=== PATIENT | female | born 1970 | race Hispanic/Latino ===

== ENCOUNTER 2023-10-17 05:16 | Day surgery (SDC) | payer OTHER, SELFPAY ==
[2023-10-09 12:39] VITALS: BMI 26.5
--- NOTE | 2023-10-09 12:42 | PC.NURSE ---
Report to the Outpatient Waiting Room, entrance under the green pavilion located off [facility], at time 1200 on date 10/17/23. Planned Procedure Time: 1400. Time changes happen often and if your time is changed the preop area will call you the afternoon before. - You and your visitor will be asked to self-screen and do not enter if you have any COVID symptoms. - A mask is optional within the hospital at this time. Patients may have clear liquids (water, carbonated beverages, clear teas, apple juice) until 3 hours prior to surgery with a maximum of 20 ounces. - No food from midnight until time of surgery Take the following medications with a SIP of water the morning of surgery: CITALOPRAM, LAMOTRIGINE DO NOT STOP ANY OF YOUR OTHER PRESCRIPTION MEDICATIONS PRIOR TO SURGERY ?EXCEPT THE FOLLOWING Medications to discontinue per physician: N/A Date to take last dose: N/A Please no make-up, nail sami, hairspray, perfume, deodorant, or body powder the day of surgery. No jewelry (including any body piercings) or valuables the day of surgery, leave them at home. Please take a shower or bath the night before, or the morning of, surgery with an antibacterial soap. Wear comfortable, loose fitting clothing. - Jewelry must be removed prior to entering the operating room. Rings and piercings that are not removed may be cut off. - The hospital will not accept responsibility for valuables. - Please leave all valuables, including medications, at home the day of surgery. If you are going home after surgery, a licensed auto haulaway driver must drive you home. - NO public transportation without another adult if you receive anesthesia. - We recommend that an adult stay with you for 24 hours following discharge. - We also recommend that you do not drive, make important decision, drink alcoholic beverages, or take any drugs that were not prescribed by your health care provider for at least 24 hours after your discharge time. Follow any additional instructions given to you from your surgeon. If you or anyone in your household have experienced Covid symptoms in the past week, please notify your surgeon or the nurse liaison at the phone number below for possible testing. Telephone instructions given to PT - LARISSA GLASGOW and asked if any additional questions and then verbalized understanding. Patient advised to call surgeon office or pre surgery nurse liaison [phone] if any additional questions.
[2023-10-17] VITALS (8 sets, daily range): BP systolic 102–134; BP diastolic 56–76; PULSE 76–109; RESP 13–22; TEMP 36.2–36.9; O2SAT 94–100
[2023-10-17] MEDS: LACTATED RINGERS 1,000 ML 30 ML IV CONT ×2 (11:00→13:01)
--- NOTE | 2023-10-17 11:26 | WPDANESEPPF ---
Anes - Initial Pre Proc Eval Procedure: Operation Date: 10/17/23 12:00 Proposed Procedures p Bilateral Breast Implant Removal with Capsulectomy - Abhilash Bearden MD Date/Time: 10/17/23 11:26 Surgeon: Abhilash Bearden MD Pre Op Diagnosis: hx of breast augmentation Patient Data Age: 53 Gender: F Height: 1.57 m Weight: 65.8 kg Allergies Allergy/AdvReac Type Severity Reaction Status Date / Time No Known Allergies Allergy Verified 10/09/23 12:37 Home Medications Medication Instructions Recorded Confirmed Type citalopram 40 mg tablet 40 mg PO DAILY 10/09/23 10/17/23 History lamotrigine 100 mg tablet 100 mg PO DAILY 10/09/23 10/17/23 History lamotrigine 150 mg tablet 150 mg PO HS 10/09/23 10/17/23 History lithium carbonate 600 mg capsule 600 mg PO HS 10/09/23 10/17/23 History Patient hx anesthesia problems: none Family hx anesthesia problems: none Results Review: All pre-operative results and documents have been reviewed as part of the pre-operative evaluation. [facility] Social History Social History Smoking status: Never smoker Alcohol intake: former Substance use: never Substance use type: does not use Living arrangements: with family Spiritual care concerns: No Anes - Eval Final PreProcedure Day of Procedure 10/17/23 11:26 Patient weight: normal Heart: regular rate and rhythm Lungs: clear to auscultation Airway: Mallampati scale class II Neurological: alert and oriented Last oral intake: >/= 8 hours ASA classification: II Emergent: no Anesthetic plan: proceed Anesthesia type and monitoring: general LMA and standard monitoring Results Review: All pre-operative results and documents have been reviewed as part of the pre-operative evaluation. Informed Consent: The patient's anesthetic plan and its attendant risks and benefits were discussed with the patient/family/POA. Questions were solicited and answers provided to the satisfaction of the patient/family/POA.
--- NOTE | 2023-10-17 11:27 | WPDHPUPDATE1 ---
History and Physical Update Update Date/Time: 10/17/23 11:27 History and Physical has been reviewed, including an updated exam of the patient. There are NO changes in the patient's condition. Risks, benefits, and alternatives have been discussed and questions answered. Patient agrees to proceed with procedure.
--- NOTE | 2023-10-17 11:28 | W.PM.PROC2 ---
Procedure Note - Detailed Date of Procedure 10/17/23 Pre-op Diagnosis hx of breast augmentation Post-op Diagnosis Same Procedure Performed Bilateral implant removal with capsulectomy Surgeon Abhilash Bearden MD Anesthesia General Findings Bilateral breast implants textured, intact. Subglandular. Majority of capsule removed. Description of Procedure She is here for the above procedure. Preoperatively risks, benefits, alternatives were discussed in extensive detail. Want her to be very realistic about risks involved as well as expectations. We discussed options or drains with the procedure including all her options. Made sure answered everyone of her questions to her satisfaction again today. She voiced clear understanding. Consent was obtained. She was taken to the operating room placed supine on the operating room table. Anesthesia provided by anesthesiology. She was prepped and draped in the standard sterile fashion. Surgical time-out was. 1% lidocaine and 0.25% Marcaine with epinephrine was used to provide a field block. Fifteen blade used to excise along previous scar. Dissection was continued down to the capsules identified it is an elevated above the capsule for majority of the capsule. At this point the implant and the capsule were removed. Capsule sent to pathology. I copiously irrigated with 3 L of saline solution on TUR tubing. Verified strict hemostasis. I closed with 2-0 Vicryl followed by 3-0 Stratafix in running subcuticular 4-0 Monocryl and tissue glue. Dressings and a surgical bra were placed. She tolerated the procedure well. Estimated Blood Loss 25 Drains No Packing No Pathology Yes (Bilateral breast capsules) Complications No immediate complications Condition Stable Disposition PACU
[2023-10-17] MEDS: ceFAZolin 2 GM/D5W 50 ML 2 GM/50 ML BAG IVPB (11:58)
[2023-10-17] MEDS: TRANEXAMIC ACID 1,000MG/ISO100 1,000 MG/100 ML BAG 200 MG IVPB (12:04)
[2023-10-17] MEDS: BUPivacaine HCL 0.25% PF 30 ML VIAL INFILTRATE (12:06)
[2023-10-17] MEDS: LIDO 1%/EPINEPHRINE 1:100,000 20 ML VIAL 30 ML INFILTRATE (12:06)
[2023-10-17] MEDS: fentaNYL CITRATE INJ (*CRX) 100 MCG/2 ML VIAL 25 MCG IV PUSH (13:38)
[2023-10-17] MEDS: oxyCODONE HCL (*CRX) 5 MG TAB IR PO (14:11)
== END 2023-10-17 14:55 | disposition home or self-care (01) ==
PROVIDERS: Visit Provider Surgery Plastic and Reconstructive Surgery
PROC: (CPT 19342; principal; 2023-10-17 12:00)
DX: Z45.812 Encounter for adjustment or removal of left breast implant (principal); Z45.811 Encounter for adjustment or removal of right breast implant
CPT/HCPCS: 19371; 88184; 88304; A9270; J0690; J1100; J2250; J2405; J2704; J3010; J7120